=== PATIENT | male | born 2000 | race Hispanic/Latino ===

== ENCOUNTER 2024-07-02 04:53 | Emergency (ER) | payer OTHER ==
[~2024-07-02] VITALS: Ht 180.3 cm; Wt 98.4 kg
[2024-07-02 05:00] VITALS: PULSE 66; RESP 18; TEMP 98.1
[2024-07-02] MEDS ORDERED: DEXAMETHASONE SOD PHOS INJ 4 MG/ML SDV ONE (05:43)
[2024-07-02] MEDS: DEXAMETHASONE PHOS 4MG/ML 5ML MULTIDOSE VIAL INJ ONE (05:47)
[2024-07-02] MEDS ORDERED: FIORICET 50-301 EACH PO (05:48)
[2024-07-02] MEDS ORDERED: ONDANSETRON ODT4 MG PO (05:49)
[2024-07-02 05:56] VITALS: BP 124/70; PULSE 62; RESP 18; TEMP 98.3; O2SAT 99
[2024-07-02] MEDS: KETOROLAC TROMETHAMINE 60 MG/2 ML VIAL IM ONE (05:56)
== END 2024-07-02 05:56 | disposition home or self-care (01) ==
LOC: FSED 05:19
DX: R51.9 Headache, unspecified (principal); R42 Dizziness and giddiness; R11.0 Nausea
CPT/HCPCS: 70450; 99283; J1100; J1885